=== PATIENT | female | born 1930 | race Caucasian/White ===

== ENCOUNTER 2016-08-21 18:35 | Inpatient (IN) ==
[2016-08-21 15:35] LABS: Basophils # 0.1 10*3/uL (0.0-0.2); Basophils % 0.5 % (0.0-0.8); Eosinophils # 0.2 10*3/uL (0.0-0.87); Hematocrit 37.9 VOL% (35.7-47.0); Hemoglobin 12.9 GM/DL (12.0-16.0); Immature Granulocytes % 1.3 %; Immature Granulocytes Absolute 0.26 #; Lymphocytes # 3.3 10*3/uL (1.4-4.0); Lymphocytes % 16.7 % (21.3-54.2); Mean Corpuscular Hemoglobin 32 PG (27-34); Mean Corpuscular Volume 92.4 FL (87-102); Mean Platelet Volume 11.2 FL (9.6-12.0); Monocytes # 1.4 10*3/uL (0.11-0.8); Monocytes % 6.8 % (1.7-12.7); Neutrophils # 14.6 10*3/uL (1.4-7.4); Neutrophils % 73.7 % (38.7-73.9); Platelet Count 330 T/CUMM (130-400); Red Cell Distribution Width 12.7 % (9.3-17.3); White Blood Count 19.7 T/CUMM (4-12)
[2016-08-21 15:45] LABS: INR 1.1; PT Patient Result 11.6 SECS; Partial Thromboplastin Time 23.8 SECS (0-40)
[2016-08-21 16:04] LABS: Blood Urea Nitrogen 27 MG/DL (7-18); Calcium 8.4 MG/DL (8.5-10.1); Glucose 267 MG/DL (74-106); Magnesium 2.4 MG/DL (1.8-2.4); Osmolality,Calculated 296.1 MOS/KG (273-304); Potassium 4.6 MMOL/L (3.5-5.1); Sodium 142 MMOL/L (136-145)
[2016-08-21 16:25] LABS: Troponin I Only 0.944 NG/ML (0.00-0.045)
--- NOTE | 2016-08-21 17:01 | EKG Report ---
Stationary ECG Study [facility] Test Date: 08/21/2016 5:00:50 PM Pat Name: CRUZITO COLVIN Department: Room: Gender: F Process Controller: : 1930 Requested by: Shania Pineda Order Number: [id number] Reading MD: ANGELICA MAGAÑA Intervals [place] Rate: 82 P: 999 MN: 0 QRS: 62 QRSD: 92 T: 79 QT: 381 QTc: 419 Interpretive Statements Atrial paced rhythm ANTERIOR EPICARDIAL INJURY INFERIOR EPICARDIAL INJURY Electronically Signed On 08-21-16 22:00:42 CDT by ANGELICA MAGAÑA [email or web address]
[2016-08-21 17:40] LABS: Basophils # 0.1 10*3/uL (0.0-0.2); Basophils % 0.2 % (0.0-0.8); Eosinophils % 0.2 % (0.00-10.9); Hemoglobin 13.6 GM/DL (12.0-16.0); Immature Granulocytes % 1.4 %; Immature Granulocytes Absolute 0.35 #; Lymphocytes # 1.6 10*3/uL (1.4-4.0); Mean Corpuscular Hemoglobin 32 PG (27-34); Mean Corpuscular Volume 94.3 FL (87-102); Mean Platelet Volume 10.8 FL (9.6-12.0); Monocytes # 0.7 10*3/uL (0.11-0.8); Monocytes % 2.6 % (1.7-12.7); Neutrophils # 23.2 10*3/uL (1.4-7.4); Neutrophils % 89.6 % (38.7-73.9); Platelet Count 254 T/CUMM (130-400); Red Blood Count 4.24 MC/CUMM (3.8-5.5); Red Cell Distribution Width 12.9 % (9.3-17.3); White Blood Count 25.8 T/CUMM (4-12)
[2016-08-21 18:02] LABS: CKMB % 8.8 %
[2016-08-21 18:07] LABS: Troponin I Only 1.82 NG/ML (0.00-0.045)
[~2016-08-21 18:35] MED LIST: BIVALIRUDIN 250 MG VIAL IV ONE; CLOPIDOGREL 300 MG TABLET ONE; DOPamine 800 MG/250 ML PREMIX IV ONE; HEPARIN/NACL 0.9% 2 UNITS/ML 1,000 ML IV ONE; HEPARIN/NACL 0.9% 2 UNITS/ML 500 ML IV ONE; LIDOCAINE 1% 20 ML VIAL ONE; MIDAZOLAM 2 MG/2 ML VIAL ONE; NITROGLYCERIN SL 0.4 MG TABLET SL PRN; ONDANSETRON 4 MG/2 ML VIAL IV PRN; ONDANSETRON 4 MG/2 ML VIAL ONE; PHENYLEPHRINE 50 MG/5 ML VIAL ONE; SODIUM BICARBONATE 2.4 MEQ/5 ML VIAL ONE; SODIUM CHLORIDE 0.45% 1,000 ML IV SCH; fentaNYL 100 MCG/2 ML VIAL ONE
[2016-08-21] MEDS: ATORVASTATIN 40 MG TABLET PO SCH (21:22)
--- NOTE | 2016-08-21 22:01 | Cardiology History & Physical ---
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 Martinez is a 85 year old female with a prior history of coronary artery disease, status post PCI to right coronary artery, also with pacemaker implantation. The patient was evaluated emergently in the Telecommunications Project Manager, it was a very poor historian. History was obtained as best I could from the patient, and chart review. Eventually this was supplemented by family postoperatively. From what I can ascertain if she has dementia and was in her retirement when she developed chest pain. EMS was activated, she was identified as having an ST elevation myocardial infarction and transferred to our facility. ECG showed ST elevation in the inferior leads and lateral leads. She was having ongoing chest pain upon arrival and underwent emergent cardiac catheterization. Please see that report for full details. She was found to have 100% mid LAD occlusion as well as 100% mid RCA occlusion. It seemed that the RCA was the culprit lesion and she underwent PCI of this vessel. I was unable to perform PCI of the mid LAD-see that report. She also had bradycardia intraoperatively despite having a pacemaker with a heart rate that was in the 20s-30s. Her pacemaker was adjusted postoperatively to improve function. She was identified as being kept under a "DO NOT RESUSCITATE" order, and these wishes were verified with the family. Apparently her Plavix was stopped 5 years ago due to rectal bleeding. I did obtain a emergency consent from the patient's granddaughter (the daughter was unavailable) preoperatively. Impression and plan: 1. Acute Inferolateral ST elevation myocardial infarction: She is status post emergent revascularization of her right coronary artery. The LAD may be a chronic occlusion and was not successfully crossed with the wire. We are going to treat her acutely with dual antiplatelet therapy, beta blockade and statin therapy. 2. Dementia-chronic. 3. Bradycardia-there was some suboptimal pacemaker function which is been adjusted and we will reevaluate this in the morning when the myocardium is less ischemic to see if it is more responsive. 4. "DO NOT RESUSCITATE". 5. Coronary artery disease Allergies Allergy/AdvReac Type Severity Reaction Status Date / Time codeine Allergy Verified 08/21/16 15:24 dexamethasone [From Maxitrol] Allergy Verified 08/21/16 15:24 morphine Allergy Verified 08/21/16 15:24 Neomycin [From Maxitrol] Allergy Verified 08/21/16 15:24 Penicillins Allergy Verified 08/21/16 15:24 polymyxin B [From Maxitrol] Allergy Verified 08/21/16 15:24 Sulfa (Sulfonamide Allergy Verified 08/21/16 15:24 Antibiotics) ROS unobtainable: due to mental status, due to dementia Medical,Surgical,& Family Hx - Medical History Cardio: History of: Pacemaker Neurology: History of: Dementia - Surgical History Cardiac Surgeries: Sugical HX of: Cardiac Catheterization (08/21/16) - Social History Smoking Status: Never smoker Frequency of Alcohol Use: None Type of Drug Use: None Cardiology Physical Exam - Constitutional Vitals: Vital Signs Temp Pulse Resp BP Pulse Ox 97.1 F L 88 20 152/70 96 08/21/16 20:00 08/21/16 21:00 08/21/16 21:00 08/21/16 21:00 08/21/16 21:00 Intake and Output 08/21/16 08/21/16 08/21/16 07:59 15:59 23:59 Intake Total 1000 / 1000 Balance 1000 / 1000 Intake: IV 1000 / 1000 1/2Ns 1,000 ml @ 125 mls/ 1000 / 1000 hr IV .Q8H [facility] Rx#: [id number] Other: Voiding Method Brief # Voids 0 Weight 58.967 kg 58.967 kg Patient Weight 08/21/16 23:59 Weight 58.967 kg Exam: General appearance: normal weight, no acute distress - Head Head exam: Present: normal inspection, normocephalic, atraumatic. Absent: hematoma, laceration - Eye Eye exam: Present: EOMI. Absent: conjunctival injection, nystagmus, periorbital swelling, scleral icterus, laceration to eyelids Pupils: Present: PERRL. Absent: constricted, dilated, fixed, irregular, unequal - ENT ENT exam: Present: normal exam, normal external ear exam - Neck Neck exam: Present: normal inspection. Absent: lymphadenopathy, meningismus, tenderness, thyromegaly - Respiratory Respiratory exam: Present: clear to auscultation bilaterally. Absent: accessory muscle use, chest wall tenderness - Cardiovascular Cardiovascular exam: Present: regular rate and rhythm. Absent: carotid bruit, gallop, JVD, rubs - GI/Abdominal GI/Abdominal exam: Present: normal bowel sounds, soft. Absent: distended, firm , guarding, hernia, mass, tenderness, rebound. - Extremities Exam Extremities exam: Present: normal inspection, normal capillary refill. Absent: calf tenderness, edema - Back Exam Back exam: Present: normal inspection. Absent: muscle spasm, vertebral tenderness - Neurological Exam Neurological exam: Present: alert, oriented X3, grossly intact without resting or intention tremor - Psychiatric Psychiatric exam: Present: normal affect, normal mood - Skin Skin exam: Present: normal color, warm, dry, intact. Absent: cyanosis, diaphoretic, rash, urticaria Result/EKG - Labs CBC & BMP: 08/21/16 17:16 08/21/16 15:18 Lab Results: I have reviewed the past 24 hour labs Labs: Laboratory Results - last 24 hr 08/21/16 08/21/16 08/21/16 15:18 15:18 15:18 WBC 19.7 H RBC 4.10 Hgb 12.9 Hct 37.9 MCV 92.4 MCH 32 MCHC 34.0 RDW 12.7 Plt Count 330 MPV 11.2 Neut % (Auto) 73.7 Lymph % (Auto) 16.7 L [place] % (Auto) 6.8 Eos % (Auto) 1.0 Baso % (Auto) 0.5 Neut # (Auto) 14.6 H Lymph # (Auto) 3.3 [place] # (Auto) 1.4 H Eos # (Auto) 0.2 Baso # (Auto) 0.1 Immature Gran % 1.3 Nucleated RBC % 0.0 Immature Gran # 0.26 Nucleated RBCs # 0.00 INR 1.1 PT Patient/Control Mix 11.6 Circ Anticoag PTT 23.8 Sodium 142 Potassium 4.6 Chloride 107 Carbon Dioxide 19 L Anion Gap 20.6 H BUN 27 H Creatinine 1.20 H GFR Calculation 38 BUN/Creatinine Ratio 22.00 H Glucose 267 H Calculated Osmolality 296.1 Calcium 8.4 L Magnesium 2.4 Total Creatine Kinase 43 CK-MB (CK-2) 2.4 CK and CKMB Interp Troponin I 0.944 H 08/21/16 08/21/16 17:16 17:16 WBC 25.8 H D RBC 4.24 Hgb 13.6 Hct 40.0 MCV 94.3 MCH 32 MCHC 34.0 RDW 12.9 Plt Count 254 D MPV 10.8 Neut % (Auto) 89.6 H Lymph % (Auto) 6.0 L [place] % (Auto) 2.6 Eos % (Auto) 0.2 Baso % (Auto) 0.2 Neut # (Auto) 23.2 H Lymph # (Auto) 1.6 [place] # (Auto) 0.7 Eos # (Auto) 0.0 Baso # (Auto) 0.1 Immature Gran % 1.4 Nucleated RBC % 0.0 Immature Gran # 0.35 Nucleated RBCs # 0.00 INR PT Patient/Control Mix Circ Anticoag PTT Sodium Potassium Chloride Carbon Dioxide Anion Gap BUN Creatinine GFR Calculation BUN/Creatinine Ratio Glucose Calculated Osmolality Calcium Magnesium Total Creatine Kinase 94 D CK-MB (CK-2) 8.3 H D CK and CKMB Interp 8.8 Troponin I 1.820 H D - EKG EKG results: interpreted by me, sinus rhythm (Inferior and lateral ST elevation)
--- NOTE | 2016-08-21 22:12 | Cardiology Operative Report ---
Date of Procedure:: 08/21/16 Pre-op diagnosis: Acute inferior myocardial infarction Post-op diagnosis: other (Severe two-vessel coronary artery disease with 100% occluded proximal mid RCA, 100% occluded mid LAD) Procedure: 1. Selective left and right coronary angiography. 2. Left heart catheterization with left ventriculogram. 3. Right iliac angiography to rule out vascular complications. 4. Percutaneous intervention of the proximal mid RCA with placement of synergy 3.5 x 24 mm drug-eluting stent. 5. Failed attempted PCI of the mid LAD. 6. Application of minx hemostasis device. Impression: 1. Severe two-vessel coronary artery disease. A. Proximal mid RCA 100% stenosis, in-stent. B. Mid LAD 100% occluded at the origin of the second diagonal artery. The second diagonal artery is also subtotally occluded. 2. Right dominant coronary arteries. 3. Ejection fraction 70%. 4. Angiographically normal right iliac artery without evidence of vascular complications. 5. Successful PCI of the mid RCA as described above. 6. Unsuccessful PCI of the mid LAD as described above. Plan: 1. DAPT > 12 months. 2. Risk factor modification. Equipment: Diagnostic 6 [place] JL4, pigtail catheters Guiding 6 [place] EBU 3.5 and JR4 catheters, 180cm [place] wire, over the wire track 2 x 12 mm balloon, synergy 3.5 x 24 mm drug-eluting stent, Quantum 3.5 x 20 mm non-compliant balloon Hemodynamics: Aortic pressure 95/23 mmHg, left ventricular pressure 64/17 mmHg, LVEDP 18 mmHg Sedation: Versed 1 mg, fentanyl 25 mcg Procedure: After informed consent was obtained the patient was prepped and draped in sterile fashion. The right groin was infiltrated with 1% lidocaine and the right femoral artery was accessed via modified Seldinger technique using a micropuncture needle and a 6 [place] femoral arterial sheath was placed. All catheter exchanges were performed over a guidewire under fluoroscopic guidance. Diagnostic 6 [place] JL4 and guiding 6 [place] JR4 catheters were advanced to the left and right coronary arteries respectively and multiple cineangiograms were performed in varying degrees of obliquity and angulation. Percutaneous intevention of the proximal mid RCA was then performed as described below. Thereafter a pigtail catheter was advanced into the left ventricle where hemodynamics were obtained followed by left ventriculogram. At conclusion of the procedure right iliac angiography was performed to rule out vascular complications. A minx hemostasis device was then applied to the right femoral arteriotomy site. Findings: 1. The left main artery is angiographically normal. 2. The left anterior descending artery is 100% occluded in the mid segment at the level of the second diagonal artery. The second diagonal artery is also subtotally occluded in the mid segment. 3. There is an intermediate ramus branch that is small and free of significant disease. 4. The circumflex artery has mild luminal irregularities but no significant stenosis. It is nondominant. 5. The right coronary artery has 100% in-stent thrombotic stenosis at the proximal stent edge of the proximal mid vessel. It is a dominant vessel. 6. Ejection fraction is 70 % with akinesis of just the apical tip. 7. Moderate mitral regurgitation. 8. No significant aortic stenosis. 9. The right iliac artery is angiographically normal without evidence of vascular complications. PCI: The patient was anticoagulated with Angiomax. After appropriate anticoagulation was confirmed with an ACT measurement, a guiding 6 [place] EBU 3.5 catheter was advanced to the right coronary artery. A [place] 180 cm wire was used to traverse the right coronary artery. A mini trek over the wire 2 x 12 mm balloon was advanced to the site of stenosis and angioplasty was performed multiple times at 14 alisson. Thereafter, a synergy 3.5 x 24 mm stent was advanced to the site of angioplasty, and successfully deployed at nominal pressure afterwards, a non-compliant Quantum 3.5 x 20 mm balloon was advanced into the stented segment and post-dilation was performed. Satisfactory angiographic result was obtained with appropriate step-up proximally and distally, and no evidence of residual vascular complications. Preoperatively there was 100% stenosis with NAIDA 0 flow, postoperatively there was 0% stenosis with NAIDA-3 flow. A guiding 6 [place] EBU 3.5 catheter was advanced to the left main artery. The provider 180 cm wire was advanced into the LAD but would not cross the occluded segment, preferentially going into the second diagonal branch. This branch was subtotally occluded, and the wire did not readily pass through the stenosis as well. The patient's ST segments were beginning to normalize after treatment of the right coronary artery, which was suspected to be the culprit vessel. The patient was demented and mildly uncooperative during the procedure. Accordingly , we elected to abort further attempts at intervening on the LAD. Contrast use: 139 cc Fluoro time: 13.5 minutes Complications: none Specimens removed: none Devices implanted: stent as described above Anesthesia: moderate conscious sedation Surgeon / Physician: Shania Pineda Commercial Painter: none (Valerie Tyler) Estimated blood loss: minimal Specimens: none sent Condition: critical Disposition: ICU/CCU
[2016-08-22 01:44] LABS: Basophils % 0.1 % (0.0-0.8); Eosinophils % 0.1 % (0.00-10.9); Hematocrit 35.7 VOL% (35.7-47.0); Hemoglobin 12.2 GM/DL (12.0-16.0); Immature Granulocytes % 0.8 %; Immature Granulocytes Absolute 0.12 #; Lymphocytes # 2.5 10*3/uL (1.4-4.0); Lymphocytes % 16.1 % (21.3-54.2); Mean Corpuscular HGB Conc 34.2 GM/DL (32-36); Mean Corpuscular Hemoglobin 32 PG (27-34); Mean Corpuscular Volume 92.5 FL (87-102); Monocytes # 1.4 10*3/uL (0.11-0.8); Monocytes % 9.3 % (1.7-12.7); Neutrophils # 11.2 10*3/uL (1.4-7.4); Neutrophils % 73.6 % (38.7-73.9); Platelet Count 264 T/CUMM (130-400); Red Blood Count 3.86 MC/CUMM (3.8-5.5); White Blood Count 15.3 T/CUMM (4-12)
[2016-08-22 01:55] LABS: CKMB % 11.5 %
[2016-08-22 01:56] LABS: Troponin I Only 12.6 NG/ML (0.00-0.045)
[2016-08-22] MEDS ORDERED: HALOPERIDOL 5 MG/ML AMP ONE (06:22)
[2016-08-22] MEDS: HALOPERIDOL 5 MG/ML AMP IV PRN ×2 (06:25→18:30)
[2016-08-22 06:34] LABS: Calcium 8.6 MG/DL (8.5-10.1); Osmolality,Calculated 285.3 MOS/KG (273-304); Potassium 4.4 MMOL/L (3.5-5.1); Risk Ratio 4.5; VLDL CHOLESTEROL 73.4 MG/DL
--- NOTE | 2016-08-22 07:39 | EKG Report ---
Stationary ECG Study [facility] Test Date: 08/22/2016 6:24:33 AM Pat Name: CRUZITO COLVIN Department: Room: 125 Gender: F Technical Consultant: CAROL : 1930 Requested by: Shania Pineda Order Number: [id number] Reading MD: ANGELICA MAGAÑA Intervals Muse Rate: 79 P: 999 AK: 0 QRS: 29 QRSD: 77 T: 143 QT: 374 QTc: 408 Interpretive Statements Sinus rhythm with Mobitz I 2AVB and sinus arrhythmia, atrial pacing LOW QRS VOLTAGE IN PRECORDIAL LEADS INFERIOR MYOCARDIAL INFARCTION, POSSIBLY ACUTE ST ELEVATION, CONSIDER ANTERIOR INJURY Electronically Signed On 08-23-16 22:42:30 CDT by ANGELICA MAGAÑA [id number]
[2016-08-22] MEDS: ASPIRIN EC 81 MG TABLET PO SCH (09:07)
[2016-08-22] MEDS: SERTRALINE 50 MG TABLET PO SCH (09:07)
[2016-08-22] MEDS: LEVOTHYROXINE 75 MCG TABLET PO SCH (09:07)
[2016-08-22] MEDS: MIRTAZAPINE 15 MG TABLET PO SCH (09:07)
[2016-08-22] MEDS: CLOPIDOGREL 75 MG TABLET PO SCH (09:07)
[2016-08-22] MEDS: CARVEDILOL 3.125 MG TABLET PO SCH ×2 (09:07→21:22)
[2016-08-22] MEDS: PANTOPRAZOLE 40 MG TABLET PO SCH (09:07)
[2016-08-22] MEDS: POLYETHYLENE GLYCOL POWDER 17 GM PACK PO SCH (09:08)
[2016-08-22 09:18] LABS: Troponin I Only 15.7 NG/ML (0.00-0.045)
[2016-08-22] MEDS: FLUTICASONE 50 MCG NASAL SPRAY 16 GM BOTTLE BOTH NARES SCH (09:36)
[2016-08-22] MEDS: rOPINIRole 0.25 MG TABLET PO SCH (09:36)
[2016-08-22] MEDS: ENOXAPARIN 30 MG/0.3 ML SYRINGE SUBCUT SCH (09:54)
[2016-08-22] MEDS ORDERED: ZIPRASIDONE 20 MG/1 ML VIAL IM SCH (10:30)
[2016-08-22] MEDS ORDERED: ZIPRASIDONE 20 MG/1 ML VIAL IM PRN (10:34)
[2016-08-22] MEDS: LORazepam 0.5 MG TABLET PO SCH ×2 (10:51→21:22)
[2016-08-22] MEDS: QUEtiapine 100 MG TABLET PO SCH ×2 (10:52→21:22)
--- NOTE | 2016-08-22 12:17 | Cardiology Progress Note ---
<PapiNhung E - Last Filed: 08/22/16 17:04> Assessment and Plan - Time spent with patient Time spent with patient: Less than 30 minutes (1) ST elevation myocardial infarction (STEMI) of inferior wall Status: Acute Assessment and plan: SEE PLAN OF CARE LISTED BELOW Current Visit: Yes (2) Coronary artery disease Status: Chronic Assessment and plan: SEE PLAN OF CARE LISTED BELOW Current Visit: Yes (3) Pacemaker Status: Chronic Assessment and plan: SEE PLAN OF CARE LISTED BELOW Current Visit: Yes (4) Hypertension Status: Chronic Assessment and plan: SEE PLAN OF CARE LISTED BELOW Current Visit: Yes (5) Dementia Status: Chronic Assessment and plan: SEE PLAN OF CARE LISTED BELOW Current Visit: Yes (6) Bradycardia Status: Acute Assessment and plan: SEE PLAN OF CARE LISTED BELOW Current Visit: Yes Cardiology - PN: Subj Interval history: LNA: DR. MANN Ms. Martinez is a 85 year old female with a prior history of coronary artery disease, status post PCI to right coronary artery, also with pacemaker implantation. She has dementia and [facility]. She developed chest pain, EMS was activated, and she was brought directly to our facility due to STEMI. ECG showed ST elevation in the inferior leads and lateral leads. She was having ongoing chest pain upon arrival and underwent emergent cardiac catheterization. She was found to have 100% mid LAD occlusion as well as 100% mid RCA occlusion. It seemed that the RCA was the culprit lesion and she underwent PCI of this vessel. She also had bradycardia intraoperatively despite having a pacemaker with a heart rate that was in the 20s-30s. Her pacemaker was adjusted postoperatively to improve function. She was identified as being kept under a "DO NOT RESUSCITATE" order, and these wishes were verified with the family. Apparently her Plavix was stopped 5 years ago due to rectal bleeding. Her daughter was at the bedside today and verbalized understanding of the necessity of starting the patient back on DAPT. She had a chest x-ray today which revealed stable lead placement. Her right groin cath site is without bleeding, hematoma, or bruit. Femoral pulse is 3+. She has no pain at the site and no ecchymosis. If she remains stable, we will plan on moving her up to the telemetry floor tomorrow. Impression and plan: 1. ACUTE INFEROLATERAL ST ELEVATION MYOCARDIAL INFARCTION - She is status post emergent revascularization of her right coronary artery. The LAD may be a chronic occlusion and was not successfully crossed with the wire. We are going to treat her acutely with dual antiplatelet therapy, beta blockade and statin therapy. 2. DEMENTIA - chronic. 3. BRADYCARDIA - there was some suboptimal pacemaker function which is been adjusted. This was re-evaluated today. She had some abdominal pulsations and her settings were once again adjusted and pacemaker now seems to be functioning appropriately. This afternoon, she was given a dose of Geodon and subsequently had an episode of hypotension and diaphoresis which improved within a few minutes. No EKG changes were noted and her pacemaker has continued functioning appropriately. 4. "DO NOT RESUSCITATE". 5. CORONARY ARTERY DISEASE Dr. Pineda to follow with further plan and addendum. Exam (Progress Note) - Constitutional Vitals: Period Temp Pulse Resp BP Sys/Cooper Pulse Ox Last 24 Hr 97.1 F-99.0 F 69-93 12-28 83-156/34-100 92-97 Exam: General appearance: normal weight, no acute distress - Head Head exam: Present: normal inspection, normocephalic, atraumatic. Absent: hematoma, laceration - Eye Eye exam: Present: EOMI. Absent: conjunctival injection, nystagmus, periorbital swelling, scleral icterus, laceration to eyelids Pupils: Present: PERRL. Absent: constricted, dilated, fixed, irregular, unequal - ENT ENT exam: Present: normal exam, normal external ear exam - Neck Neck exam: Present: normal inspection. Absent: lymphadenopathy, meningismus, tenderness, thyromegaly - Respiratory Respiratory exam: Present: clear to auscultation bilaterally. Absent: accessory muscle use, chest wall tenderness - Cardiovascular Cardiovascular exam: Present: regular rate and rhythm. Absent: carotid bruit, gallop, JVD, rubs - GI/Abdominal GI/Abdominal exam: Present: normal bowel sounds, soft. Absent: distended, firm , guarding, hernia, mass, tenderness, rebound. - Extremities Exam Extremities exam: Present: normal inspection, normal capillary refill. Absent: calf tenderness, edema - Back Exam Back exam: Present: normal inspection. Absent: muscle spasm, vertebral tenderness - Neurological Exam Neurological exam: Present: alert, oriented to person, grossly intact without resting or intention tremor - Psychiatric Psychiatric exam: Present: normal affect, normal mood - Skin Skin exam: Present: normal color, warm, dry, intact. Absent: cyanosis, diaphoretic, rash, urticaria Result/EKG - Labs CBC & BMP: 08/22/16 01:16 08/22/16 01:16 Lab Results: I have reviewed the past 24 hour labs Labs: Laboratory Results - last 24 hr 08/21/16 08/21/16 08/21/16 15:18 15:18 15:18 WBC 19.7 H RBC 4.10 Hgb 12.9 Hct 37.9 MCV 92.4 MCH 32 MCHC 34.0 RDW 12.7 Plt Count 330 MPV 11.2 Neut % (Auto) 73.7 Lymph % (Auto) 16.[address] [place] % (Auto) 6.8 Eos % (Auto) 1.0 Baso % (Auto) 0.5 Neut # (Auto) 14.6 H Lymph # (Auto) 3.3 [place] # (Auto) 1.4 H Eos # (Auto) 0.2 Baso # (Auto) 0.1 Immature Gran % 1.3 Nucleated RBC % 0.0 Immature Gran # 0.26 Nucleated RBCs # 0.00 INR 1.1 PT Patient/Control Mix 11.6 Circ Anticoag PTT 23.8 Sodium 142 Potassium 4.6 Chloride 107 Carbon Dioxide 19 L Anion Gap 20.6 H BUN 27 H Creatinine 1.20 H GFR Calculation 38 BUN/Creatinine Ratio 22.00 H Glucose 267 H Calculated Osmolality 296.1 Calcium 8.4 L Magnesium 2.4 ALT Total Creatine Kinase 43 CK-MB (CK-2) 2.4 CK and CKMB Interp Troponin I 0.944 H Triglycerides Cholesterol LDL Cholesterol VLDL Cholesterol HDL Cholesterol Heart Disease Risk Ratio 08/21/16 08/21/16 08/22/16 17:16 17:16 01:16 WBC 25.8 H D RBC 4.24 Hgb 13.6 Hct 40.0 MCV 94.3 MCH 32 MCHC 34.0 RDW 12.9 Plt Count 254 D MPV 10.8 Neut % (Auto) 89.6 H Lymph % (Auto) 6.[address] % (Auto) 2.6 Eos % (Auto) 0.2 Baso % (Auto) 0.2 Neut # (Auto) 23.2 H Lymph # (Auto) 1.6 [place] # (Auto) 0.7 Eos # (Auto) 0.0 Baso # (Auto) 0.1 Immature Gran % 1.4 Nucleated RBC % 0.0 Immature Gran # 0.35 Nucleated RBCs # 0.00 INR PT Patient/Control Mix Circ Anticoag PTT Sodium Potassium Chloride Carbon Dioxide Anion Gap BUN Creatinine GFR Calculation BUN/Creatinine Ratio Glucose Calculated Osmolality Calcium Magnesium ALT Total Creatine Kinase 94 D 417 H D CK-MB (CK-2) 8.3 H D 47.9 H D CK and CKMB Interp 8.8 11.5 Troponin I 1.820 H D 12.600 H D Triglycerides Cholesterol LDL Cholesterol VLDL Cholesterol HDL Cholesterol Heart Disease Risk Ratio 08/22/16 08/22/16 01:16 01:16 WBC 15.3 H D RBC 3.86 Hgb 12.2 Hct 35.7 MCV 92.5 MCH 32 MCHC 34.2 RDW 13.0 Plt Count 264 MPV 11.0 Neut % (Auto) 73.6 Lymph % (Auto) 16.[address] % (Auto) 9.3 Eos % (Auto) 0.1 Baso % (Auto) 0.1 Neut # (Auto) 11.2 H Lymph # (Auto) 2.5 [place] # (Auto) 1.4 H Eos # (Auto) 0.0 Baso # (Auto) 0.0 Immature Gran % 0.8 Nucleated RBC % 0.0 Immature Gran # 0.12 Nucleated RBCs # 0.00 INR PT Patient/Control Mix Circ Anticoag PTT Sodium 141 Potassium 4.4 Chloride 105 Carbon Dioxide 22 Anion Gap 18.4 H BUN 23 H Creatinine 1.10 H GFR Calculation 42 BUN/Creatinine Ratio 20.00 Glucose 116 H Calculated Osmolality 285.3 Calcium 8.6 Magnesium ALT 127 H Total Creatine Kinase CK-MB (CK-2) CK and CKMB Interp Troponin I Triglycerides 367 H Cholesterol 162 LDL Cholesterol 86.0 VLDL Cholesterol 73.4 HDL Cholesterol 36 L Heart Disease Risk Ratio 4.50 - EKG EKG results: interpreted by me (v paced with underlying sinus rhythm) Specialty Discharge - Follow Up or Referrals <Shania Pineda - Last Filed: 08/22/16 20:13> Assessment and Plan (1) ST elevation myocardial infarction (STEMI) of inferior wall Status: Acute Current Visit: Yes (2) Coronary artery disease Status: Chronic Current Visit: Yes (3) Pacemaker Status: Chronic Current Visit: Yes (4) Hypertension Status: Chronic Current Visit: Yes (5) Dementia Status: Chronic Current Visit: Yes (6) Bradycardia Status: Acute Current Visit: Yes Cardiology - PN: Subj Interval history: I have personally interviewed and evaluated the patient, reviewed the chart and discussed medical decision-making with practitioner Papi. I have read this note and agree with her documentation here in. The patient is having diaphragmatic pacing and we will need to readjust her pacemaker. Exam (Progress Note) - Constitutional Vitals: Period Temp Pulse Resp BP Sys/Cooper Pulse Ox Last 24 Hr 98.2 F-99.0 F 59-93 12-23 96-156/40-100 92-97 Result/EKG - Labs CBC & BMP: 08/22/16 01:16 08/22/16 01:16 Labs: Laboratory Results - last 24 hr 08/22/16 08/22/16 08/22/16 01:16 01:16 01:16 WBC 15.3 H D RBC 3.86 Hgb 12.2 Hct 35.7 MCV 92.5 MCH 32 MCHC 34.2 RDW 13.0 Plt Count 264 MPV 11.0 Neut % (Auto) 73.6 Lymph % (Auto) 16.[address] [place] % (Auto) 9.3 Eos % (Auto) 0.1 Baso % (Auto) 0.1 Neut # (Auto) 11.2 H Lymph # (Auto) 2.5 [place] # (Auto) 1.4 H Eos # (Auto) 0.0 Baso # (Auto) 0.0 Immature Gran % 0.8 Nucleated RBC % 0.0 Immature Gran # 0.12 Nucleated RBCs # 0.00 Sodium 141 Potassium 4.4 Chloride 105 Carbon Dioxide 22 Anion Gap 18.4 H BUN 23 H Creatinine 1.10 H GFR Calculation 42 BUN/Creatinine Ratio 20.00 Glucose 116 H Calculated Osmolality 285.3 Calcium 8.6 ALT 127 H Total Creatine Kinase 417 H D CK-MB (CK-2) 47.9 H D CK and CKMB Interp 11.5 Troponin I 12.600 H D Triglycerides 367 H Cholesterol 162 LDL Cholesterol 86.0 VLDL Cholesterol 73.4 HDL Cholesterol 36 L Heart Disease Risk Ratio 4.50 08/22/16 08:43 WBC RBC Hgb Hct MCV MCH MCHC RDW Plt Count MPV Neut % (Auto) Lymph % (Auto) [place] % (Auto) Eos % (Auto) Baso % (Auto) Neut # (Auto) Lymph # (Auto) [place] # (Auto) Eos # (Auto) Baso # (Auto) Immature Gran % Nucleated RBC % Immature Gran # Nucleated RBCs # Sodium Potassium Chloride Carbon Dioxide Anion Gap BUN Creatinine GFR Calculation BUN/Creatinine Ratio Glucose Calculated Osmolality Calcium ALT Total Creatine Kinase 518 H D CK-MB (CK-2) 41.4 H D CK and CKMB Interp 8.0 Troponin I 15.700 H D Triglycerides Cholesterol LDL Cholesterol VLDL Cholesterol HDL Cholesterol Heart Disease Risk Ratio
--- NOTE | 2016-08-22 15:04 | XRay Report ---
History: Check pacemaker leads. Myocardial infarction Date: 08/22/2016 Study: Chest x-ray single view Comparison exam: December 20, 2010 There is stable mild cardiomegaly. The mediastinal contour is unchanged. There is moderate aortic arch calcification. The pulmonary vasculature is not engorged. There is no gross pleural effusion. There is no confluent infiltrate. There is mild platelike subsegmental atelectasis in the left lower lobe. A left subclavian multilead transvenous pacemaker is generally intact and appears grossly well-positioned in this single projection. The osseous structures are unchanged. Impression: Minimal platelike subsegmental atelectasis left lung base. Stable mild cardiomegaly. Pacemaker as before PROCEDURE INTERPRETED AT [facility] DEPARTMENT OF RADIOLOGY Final Report Signed by: Dr. Liberty Chin
[2016-08-22] MEDS: OLOPATADINE HCL BOTH EYES SCH (16:33)
[2016-08-22] MEDS: LATANOPROST 0.005% OPH SOLN 2.5 ML BOTTLE BOTH EYES SCH (16:34)
[2016-08-22] MEDS: ATORVASTATIN 40 MG TABLET PO SCH (21:22)
[2016-08-23] MEDS: HALOPERIDOL 5 MG/ML AMP IV PRN (05:27)
[2016-08-23 06:59] LABS: Calcium 9.7 MG/DL (8.5-10.1); Osmolality,Calculated 294.7 MOS/KG (273-304); Potassium 5.2 MMOL/L (3.5-5.1)
[2016-08-23 07:37] LABS: Basophils # 0.1 10*3/uL (0.0-0.2); Basophils % 0.5 % (0.0-0.8); Eosinophils # 0.1 10*3/uL (0.0-0.87); Eosinophils % 0.8 % (0.00-10.9); Hematocrit 37.8 VOL% (35.7-47.0); Hemoglobin 12.7 GM/DL (12.0-16.0); Immature Granulocytes % 0.5 %; Immature Granulocytes Absolute 0.07 #; Lymphocytes # 2.3 10*3/uL (1.4-4.0); Lymphocytes % 17.5 % (21.3-54.2); Mean Corpuscular HGB Conc 33.6 GM/DL (32-36); Mean Corpuscular Hemoglobin 32 PG (27-34); Mean Corpuscular Volume 94.3 FL (87-102); Monocytes # 1.3 10*3/uL (0.11-0.8); Monocytes % 9.9 % (1.7-12.7); Neutrophils # 9.3 10*3/uL (1.4-7.4); Neutrophils % 70.8 % (38.7-73.9); Platelet Count 218 T/CUMM (130-400); Red Blood Count 4.01 MC/CUMM (3.8-5.5); Red Cell Distribution Width 13.2 % (9.3-17.3); White Blood Count 13.2 T/CUMM (4-12)
--- NOTE | 2016-08-23 08:31 | Cardiology Progress Note ---
<TurpinJose MNhung E - Last Filed: 08/23/16 08:26> Assessment and Plan - Time spent with patient Time spent with patient: Less than 30 minutes (1) ST elevation myocardial infarction (STEMI) of inferior wall Status: Acute Assessment and plan: SEE PLAN OF CARE LISTED BELOW Current Visit: Yes (2) Coronary artery disease Status: Chronic Assessment and plan: SEE PLAN OF CARE LISTED BELOW Current Visit: Yes (3) Pacemaker Status: Chronic Assessment and plan: SEE PLAN OF CARE LISTED BELOW Current Visit: Yes (4) Hypertension Status: Chronic Assessment and plan: SEE PLAN OF CARE LISTED BELOW Current Visit: Yes (5) Dementia Status: Chronic Assessment and plan: SEE PLAN OF CARE LISTED BELOW Current Visit: Yes (6) Bradycardia Status: Acute Assessment and plan: SEE PLAN OF CARE LISTED BELOW Current Visit: Yes Cardiology - PN: Subj Interval history: AIRCRAFT ENGINE ASSEMBLER: DR. MANN Ms. Martinez is a 85 year old female with a prior history of coronary artery disease, status post PCI to right coronary artery, also with pacemaker implantation. She has dementia and resides in the assisted. She developed chest pain, EMS was activated, and she was brought directly to our facility due to STEMI. ECG showed ST elevation in the inferior leads and lateral leads. She was having ongoing chest pain upon arrival and underwent emergent cardiac catheterization. She was found to have 100% mid LAD occlusion as well as 100% mid RCA occlusion. It seemed that the RCA was the culprit lesion and she underwent PCI of this vessel. She also had bradycardia intraoperatively despite having a pacemaker with a heart rate that was in the 20s-30s. Her pacemaker was adjusted postoperatively to improve function. She was identified as being kept under a "DO NOT RESUSCITATE" order, and these wishes were verified with the family. Apparently her Plavix was stopped 5 years ago due to rectal bleeding. Her daughter was at the bedside today and verbalized understanding of the necessity of starting the patient back on DAPT. She had a chest x-ray today which revealed stable lead placement. Her right groin cath site is without bleeding, hematoma, or bruit. Femoral pulse is 3+. She has no pain at the site and no ecchymosis. If she remains stable, we will plan on moving her up to the telemetry floor tomorrow. Impression and plan: 1. ACUTE INFEROLATERAL ST ELEVATION MYOCARDIAL INFARCTION - She is status post emergent revascularization of her right coronary artery. The LAD may be a chronic occlusion and was not successfully crossed with the wire. We are going to treat her acutely with dual antiplatelet therapy, beta blockade and statin therapy. 2. DEMENTIA - chronic. She is receiving Geodon to help with intermittent agitation. 3. BRADYCARDIA - there was some suboptimal pacemaker function which is been adjusted. This was re-evaluated and she was found to have some diaphragmatic pacing and her settings were once again adjusted. This morning, she continues to have some intermittent diaphragmatic pacing. We will ask [employer] to come by and check on her settings again today. This may improve over time as she recovers from her acute event. 4. "DO NOT RESUSCITATE". 5. CORONARY ARTERY DISEASE Dr. Pineda to follow with further plan and addendum. Exam (Progress Note) - Constitutional Vitals: Period Temp Pulse Resp BP Sys/Cooper Pulse Ox Last 24 Hr 97.5 F-98.5 F 54-82 12-24 96-177/39-75 89-97 Exam: General appearance: normal weight, no acute distress - Head Head exam: Present: normal inspection, normocephalic, atraumatic. Absent: hematoma, laceration - Eye Eye exam: Present: EOMI. Absent: conjunctival injection, nystagmus, periorbital swelling, scleral icterus, laceration to eyelids Pupils: Present: PERRL. Absent: constricted, dilated, fixed, irregular, unequal - ENT ENT exam: Present: normal exam, normal external ear exam - Neck Neck exam: Present: normal inspection. Absent: lymphadenopathy, meningismus, tenderness, thyromegaly - Respiratory Respiratory exam: Present: clear to auscultation bilaterally. Absent: accessory muscle use, chest wall tenderness - Cardiovascular Cardiovascular exam: Present: regular rate and rhythm. Absent: carotid bruit, gallop, JVD, rubs - GI/Abdominal GI/Abdominal exam: Present: normal bowel sounds, soft. Absent: distended, firm , guarding, hernia, mass, tenderness, rebound. - Extremities Exam Extremities exam: Present: normal inspection, normal capillary refill. Absent: calf tenderness, edema - Back Exam Back exam: Present: normal inspection. Absent: muscle spasm, vertebral tenderness - Neurological Exam Neurological exam: Present: alert, oriented to person, grossly intact without resting or intention tremor - Psychiatric Psychiatric exam: Present: normal affect, normal mood - Skin Skin exam: Present: normal color, warm, dry, intact. Absent: cyanosis, diaphoretic, rash, urticaria Result/EKG - Labs CBC & BMP: 08/23/16 07:23 08/23/16 05:08 Lab Results: I have reviewed the past 24 hour labs Labs: Laboratory Results - last 24 hr 08/22/16 08/23/16 08/23/16 08:43 05:08 07:23 WBC 13.2 H RBC 4.01 Hgb 12.7 Hct 37.8 MCV 94.3 MCH 32 MCHC 33.6 RDW 13.2 Plt Count 218 MPV 11.0 Neut % (Auto) 70.8 Lymph % (Auto) 17.5 L [place] % (Auto) 9.9 Eos % (Auto) 0.8 Baso % (Auto) 0.5 Neut # (Auto) 9.3 H Lymph # (Auto) 2.3 [place] # (Auto) 1.3 H Eos # (Auto) 0.1 Baso # (Auto) 0.1 Immature Gran % 0.5 Nucleated RBC % 0.0 Immature Gran # 0.07 Nucleated RBCs # 0.00 Sodium 145 Potassium 5.2 H Chloride 108 H Carbon Dioxide 22 Anion Gap 20.2 H BUN 27 H Creatinine 1.30 H GFR Calculation 35 BUN/Creatinine Ratio 20.00 Glucose 141 H Calculated Osmolality 294.7 Calcium 9.7 Total Creatine Kinase 518 H D CK-MB (CK-2) 41.4 H D CK and CKMB Interp 8.0 Troponin I 15.700 H D - EKG EKG results: interpreted by me (ventricular pacing with underlying sinus rhythm) Specialty Discharge - Follow Up or Referrals <Shania Pineda - Last Filed: 08/23/16 20:39> Assessment and Plan (1) ST elevation myocardial infarction (STEMI) of inferior wall Status: Acute Current Visit: Yes (2) Coronary artery disease Status: Chronic Current Visit: Yes (3) Pacemaker Status: Chronic Current Visit: Yes (4) Hypertension Status: Chronic Current Visit: Yes (5) Dementia Status: Chronic Current Visit: Yes (6) Bradycardia Status: Acute Current Visit: Yes Cardiology - PN: Subj Interval history: I have personally interviewed and evaluated the patient, reviewed the chart and discussed medical decision-making with practitioner Papi. I have read this note and agree with her documentation here in. I have discussed the patient's pacemaker situation with Dr. Isaac. Because the patient has advanced dementia it is felt most prudent to adjust her pacemaker for VVI backup pacemaking at a low rate which may intermittently pacer diaphragm, however she is not pacemaker dependent and uses the pacemaker function and frequently at the lower rate. She really would not be a candidate for revision given her advanced age, and dementia. Exam (Progress Note) - Constitutional Vitals: Period Temp Pulse Resp BP Sys/Cooper Pulse Ox Last 24 Hr 97.5 F-98.8 F 54-82 12-22 116-177/39-87 89-97 Result/EKG - Labs CBC & BMP: 08/23/16 07:23 08/23/16 05:08 Labs: Laboratory Results - last 24 hr 08/23/16 08/23/16 05:08 07:23 WBC 13.2 H RBC 4.01 Hgb 12.7 Hct 37.8 MCV 94.3 MCH 32 MCHC 33.6 RDW 13.2 Plt Count 218 MPV 11.0 Neut % (Auto) 70.8 Lymph % (Auto) 17.5 L [place] % (Auto) 9.9 Eos % (Auto) 0.8 Baso % (Auto) 0.5 Neut # (Auto) 9.3 H Lymph # (Auto) 2.3 [place] # (Auto) 1.3 H Eos # (Auto) 0.1 Baso # (Auto) 0.1 Immature Gran % 0.5 Nucleated RBC % 0.0 Immature Gran # 0.07 Nucleated RBCs # 0.00 Sodium 145 Potassium 5.2 H Chloride 108 H Carbon Dioxide 22 Anion Gap 20.2 H BUN 27 H Creatinine 1.30 H GFR Calculation 35 BUN/Creatinine Ratio 20.00 Glucose 141 H Calculated Osmolality 294.7 Calcium 9.7
[2016-08-23] MEDS: QUEtiapine 100 MG TABLET PO SCH ×2 (09:08→21:53)
[2016-08-23] MEDS: ASPIRIN EC 81 MG TABLET PO SCH (09:08)
[2016-08-23] MEDS: SERTRALINE 50 MG TABLET PO SCH (09:08)
[2016-08-23] MEDS: LORazepam 0.5 MG TABLET PO SCH ×2 (09:08→21:44)
[2016-08-23] MEDS: CLOPIDOGREL 75 MG TABLET PO SCH (09:08)
[2016-08-23] MEDS: CARVEDILOL 3.125 MG TABLET PO SCH ×2 (09:09→21:44)
[2016-08-23] MEDS: LEVOTHYROXINE 75 MCG TABLET PO SCH (09:09)
[2016-08-23] MEDS: rOPINIRole 0.25 MG TABLET PO SCH (09:09)
[2016-08-23] MEDS: PANTOPRAZOLE 40 MG TABLET PO SCH (09:09)
[2016-08-23] MEDS: MIRTAZAPINE 15 MG TABLET PO SCH (09:09)
[2016-08-23] MEDS: FLUTICASONE 50 MCG NASAL SPRAY 16 GM BOTTLE BOTH NARES SCH (09:11)
[2016-08-23] MEDS: ENOXAPARIN 30 MG/0.3 ML SYRINGE SUBCUT SCH (09:21)
[2016-08-23] MEDS: LATANOPROST 0.005% OPH SOLN 2.5 ML BOTTLE BOTH EYES SCH (10:37)
[2016-08-23] MEDS: OLOPATADINE HCL BOTH EYES SCH (10:38)
--- NOTE | 2016-08-23 17:37 | ECHO Report ---
Nereida Martinez Exam Date: 08/22/2016 08:24 Referring Physician: Technologist: Luz Patton Age: 85 Ht (in): 62 Wt (lb): 130 Gender: F Exam Location: [facility] Echo Indications: CAD, Essential (primary) hypertension, Chest pain, unspecified, Bradycardia, unspecified, Presence of cardiac pacemaker, Dementia BP: 147 / 40 HR: 80 Rhythm: pacemaker Technical Quality: Fair IMPRESSIONS Low normal mildly reduced LV systolic function with regional wall motion as described below, ejection fraction 45-50%. Grade 1/4 diastolic dysfunction. Mild left ventricular hypertrophy. Mild mitral, aortic and tricuspid regurgitation. MEASUREMENTS (Male / Female) Normal Values 2D ECHO LV Diastolic Diameter PLAX 3.5 cm 4.2 - 5.9 / 3.9 - 5.3 cm LV Systolic Diameter PLAX 2.1 cm LV Fractional Shortening PLAX 40.2 % IVS Diastolic Thickness 1.3 cm 0.6 - 1.0 / 0.6 - 0.9 cm LVPW Diastolic Thickness 0.9 cm 0.6 - 1.0 / 0.6 - 0.9 cm RV Internal Dim ED PLAX 2.3 cm Aortic Root Diameter 2.6 cm LA Systolic Diameter LX 3.0 cm 3.0 - 4.0 / 2.7 - 3.8 cm DOPPLER TR Peak Velocity 276.0 cm/s TR Peak Gradient 30.5 mmHg FINDINGS Left Ventricle Normal left ventricular cavity size. Normal left ventricular size and systolic function, left ventricular ejection fraction is estimated at 50%. There is very poor endocardial resolution which prohibits regional wall motion assessment. The apex and distal inferior wall are suspected to be akinetic. Right Ventricle Normal right ventricular size. Right Atrium Normal right atrial size. Left Atrium Normal left atrial size. Mitral Valve Mild mitral valve sclerosis. Mild mitral valve regurgitation. Aortic Valve Aortic valve sclerosis without stenosis. Mild aortic valve regurgitation. Tricuspid Valve Morphologically normal tricuspid valve. Mild tricuspid valve regurgitation. Tricuspid regurgitation velocities suggest a PAP of 40 mmHg. Pulmonic Valve Morphologically normal pulmonic valve. Pericardium No pericardial effusion. Aorta Normal size aortic root and proximal ascending aorta. Shania Pineda MD (Electronically Signed) Final Date: 23 Aug 2016 17:36
[2016-08-23] MEDS: ATORVASTATIN 40 MG TABLET PO SCH (21:44)
[2016-08-24 05:58] LABS: Basophils # 0.1 10*3/uL (0.0-0.2); Basophils % 0.7 % (0.0-0.8); Eosinophils # 0.4 10*3/uL (0.0-0.87); Eosinophils % 3.1 % (0.00-10.9); Hematocrit 35.7 VOL% (35.7-47.0); Hemoglobin 11.9 GM/DL (12.0-16.0); Immature Granulocytes % 0.7 %; Immature Granulocytes Absolute 0.08 #; Lymphocytes # 2.6 10*3/uL (1.4-4.0); Lymphocytes % 21.7 % (21.3-54.2); Mean Corpuscular HGB Conc 33.3 GM/DL (32-36); Mean Corpuscular Hemoglobin 31 PG (27-34); Mean Corpuscular Volume 93.7 FL (87-102); Mean Platelet Volume 11.4 FL (9.6-12.0); Monocytes # 1.1 10*3/uL (0.11-0.8); Neutrophils # 7.6 10*3/uL (1.4-7.4); Neutrophils % 64.8 % (38.7-73.9); Platelet Count 218 T/CUMM (130-400); Red Blood Count 3.81 MC/CUMM (3.8-5.5); White Blood Count 11.8 T/CUMM (4-12)
[2016-08-24 06:18] LABS: Osmolality,Calculated 292.8 MOS/KG (273-304); Potassium 4.1 MMOL/L (3.5-5.1)
[2016-08-24] MEDS: ASPIRIN EC 81 MG TABLET PO SCH (09:40)
[2016-08-24] MEDS: PANTOPRAZOLE 40 MG TABLET PO SCH (09:40)
[2016-08-24] MEDS: rOPINIRole 0.25 MG TABLET PO SCH (09:41)
[2016-08-24] MEDS: MIRTAZAPINE 15 MG TABLET PO SCH (09:41)
[2016-08-24] MEDS: CARVEDILOL 3.125 MG TABLET PO SCH (09:41)
[2016-08-24] MEDS: LORazepam 0.5 MG TABLET PO SCH ×2 (09:41→21:52)
[2016-08-24] MEDS: CLOPIDOGREL 75 MG TABLET PO SCH (09:41)
[2016-08-24] MEDS: QUEtiapine 100 MG TABLET PO SCH ×2 (09:41→21:54)
[2016-08-24] MEDS: LEVOTHYROXINE 75 MCG TABLET PO SCH (09:41)
[2016-08-24] MEDS: SERTRALINE 50 MG TABLET PO SCH (09:42)
[2016-08-24] MEDS: POLYETHYLENE GLYCOL POWDER 17 GM PACK PO SCH (09:42)
[2016-08-24] MEDS: FLUTICASONE 50 MCG NASAL SPRAY 16 GM BOTTLE BOTH NARES SCH (09:42)
[2016-08-24] MEDS: LATANOPROST 0.005% OPH SOLN 2.5 ML BOTTLE BOTH EYES SCH (09:44)
[2016-08-24] MEDS: ENOXAPARIN 40 MG/0.4 ML SYRINGE SUBCUT SCH (09:44)
[2016-08-24] MEDS: OLOPATADINE HCL BOTH EYES SCH ×2 (09:44→10:00)
--- NOTE | 2016-08-24 17:38 | Cardiology Progress Note ---
Assessment and Plan (1) ST elevation myocardial infarction (STEMI) of inferior wall Status: Acute Current Visit: Yes (2) Coronary artery disease Status: Chronic Current Visit: Yes (3) Pacemaker Status: Chronic Current Visit: Yes (4) Hypertension Status: Chronic Current Visit: Yes (5) Dementia Status: Chronic Current Visit: Yes (6) Bradycardia Status: Resolved Current Visit: Yes Cardiology - PN: Subj Interval history: LICENSED OCCUPATIONAL THERAPY ASSISTANT: DR. MANN Summary: Ms. Martinez is a 85 year old female with a prior history of coronary artery disease, status post PCI to right coronary artery, also with pacemaker implantation. She has dementia and resides in the [facility]. He was admitted with inferior STEMI. Cath demonstrated 100% mid LAD occlusion as well as 100% mid RCA occlusion. It seemed that the RCA was the culprit lesion and she underwent PCI of this vessel. The LAD could not be readily wired, due to a diagonal branch at the site of stenosis. She also had bradycardia intraoperatively despite having a pacemaker with a heart rate that was in the 20s-30s. We adjusted her pacemaker several times, and at this point we are going to try not to ventricular pacer as there is not good capture, unless we turn the output up high enough that she captures her diaphragm. She was identified as being kept under a "DO NOT RESUSCITATE" order, and these wishes were verified with the family. August 24, 2016: She has no complaints. She tells me her heart and lungs are fine. She is suspicious about us examining her, wondering why we are examining her when he feels fine. Impression and plan: 1. ACUTE INFEROLATERAL ST ELEVATION MYOCARDIAL INFARCTION - She is status post emergent revascularization of her right coronary artery. The LAD may be a chronic occlusion and was not successfully crossed. We are going to treat her acutely with dual antiplatelet therapy, beta blockade and statin therapy. 2. DEMENTIA - chronic. She is receiving Geodon to help with intermittent agitation. 3. BRADYCARDIA -pacemaker has been readjusted. 4. "DO NOT RESUSCITATE". 5. CORONARY ARTERY DISEASE 6. Hypertension-we will advance her antihypertensive regimen. Exam (Progress Note) - Constitutional Vitals: Period Temp Pulse Resp BP Sys/Cooper Pulse Ox Last 24 Hr 98.0 F-98.6 F 66-85 16-18 150-185/62-78 91-98 Exam: General appearance: Elderly, frail-appearing, no acute distress - Head Head exam: Present: normal inspection, normocephalic, atraumatic. Absent: hematoma, laceration - Eye Eye exam: Present: EOMI. Absent: conjunctival injection, nystagmus, periorbital swelling, scleral icterus, laceration to eyelids Pupils: Present: PERRL. Absent: constricted, dilated, fixed, irregular, unequal - ENT ENT exam: Present: normal exam, normal external ear exam - Neck Neck exam: Present: normal inspection. Absent: lymphadenopathy, meningismus, tenderness, thyromegaly - Respiratory Respiratory exam: Present: Scant crackles in the left base. Absent: accessory muscle use, chest wall tenderness - Cardiovascular Cardiovascular exam: Present: regular rate and rhythm with a 2/6 holosystolic murmur. Absent: carotid bruit, gallop, JVD, rubs - GI/Abdominal GI/Abdominal exam: Present: normal bowel sounds, soft. Absent: distended, firm , guarding, hernia, mass, tenderness, rebound. - Extremities Exam Extremities exam: Present: Decreased pulses in the bilateral lower extremities. Absent: calf tenderness, edema - Back Exam Back exam: Present: normal inspection. Absent: muscle spasm, vertebral tenderness - Neurological Exam Neurological exam: Present: alert, oriented to person, grossly intact without resting or intention tremor - Psychiatric Psychiatric exam: Present: normal affect, normal mood - Skin Skin exam: Present: normal color, warm, dry, intact. Absent: cyanosis, diaphoretic, rash, urticaria right groin is without hematoma or bruit. Result/EKG - Labs CBC & BMP: 08/24/16 05:04 08/24/16 05:04 Lab Results: I have reviewed the past 24 hour labs Labs: Laboratory Results - last 24 hr 08/24/16 08/24/16 05:04 05:04 WBC 11.8 RBC 3.81 Hgb 11.9 L Hct 35.7 MCV 93.7 MCH 31 MCHC 33.3 RDW 13.0 Plt Count 218 MPV 11.4 Neut % (Auto) 64.8 Lymph % (Auto) 21.7 [place] % (Auto) 9.0 Eos % (Auto) 3.1 Baso % (Auto) 0.7 Neut # (Auto) 7.6 H Lymph # (Auto) 2.6 [place] # (Auto) 1.1 H Eos # (Auto) 0.4 Baso # (Auto) 0.1 Immature Gran % 0.7 Nucleated RBC % 0.0 Immature Gran # 0.08 Nucleated RBCs # 0.00 Sodium 144 Potassium 4.1 Chloride 107 Carbon Dioxide 25 Anion Gap 16.1 H BUN 30 H Creatinine 1.00 GFR Calculation 48 BUN/Creatinine Ratio 30.00 H Glucose 120 H Calculated Osmolality 292.8 Calcium 9.0 Specialty Discharge - Follow Up or Referrals
[2016-08-24] MEDS: DESITIN 4OZ/NYSTATIN 15 GRAM MIXTURE PASTE TOP SCH ×2 (17:55→21:54)
[2016-08-24] MEDS: CARVEDILOL 6.25 MG TABLET PO SCH (21:52)
[2016-08-24] MEDS: ATORVASTATIN 40 MG TABLET PO SCH (21:52)
[2016-08-25 08:15] LABS: Basophils % 0.4 % (0.0-0.8); Eosinophils # 0.3 10*3/uL (0.0-0.87); Eosinophils % 2.4 % (0.00-10.9); Hematocrit 34.7 VOL% (35.7-47.0); Hemoglobin 11.7 GM/DL (12.0-16.0); Immature Granulocytes % 0.9 %; Lymphocytes % 18.2 % (21.3-54.2); Mean Corpuscular HGB Conc 33.7 GM/DL (32-36); Mean Corpuscular Hemoglobin 31 PG (27-34); Mean Corpuscular Volume 92.8 FL (87-102); Mean Platelet Volume 11.8 FL (9.6-12.0); Monocytes # 0.9 10*3/uL (0.11-0.8); Monocytes % 8.5 % (1.7-12.7); Neutrophils # 7.6 10*3/uL (1.4-7.4); Neutrophils % 69.6 % (38.7-73.9); Platelet Count 254 T/CUMM (130-400); Red Blood Count 3.74 MC/CUMM (3.8-5.5); Red Cell Distribution Width 12.8 % (9.3-17.3); White Blood Count 10.9 T/CUMM (4-12)
[2016-08-25] MEDS: ASPIRIN EC 81 MG TABLET PO SCH (09:47)
[2016-08-25] MEDS: LEVOTHYROXINE 75 MCG TABLET PO SCH (09:47)
[2016-08-25] MEDS: SERTRALINE 50 MG TABLET PO SCH (09:47)
[2016-08-25] MEDS: MIRTAZAPINE 15 MG TABLET PO SCH (09:47)
[2016-08-25] MEDS: CLOPIDOGREL 75 MG TABLET PO SCH (09:47)
[2016-08-25] MEDS: rOPINIRole 0.25 MG TABLET PO SCH (09:48)
[2016-08-25] MEDS: CARVEDILOL 6.25 MG TABLET PO SCH (09:48)
[2016-08-25] MEDS: PANTOPRAZOLE 40 MG TABLET PO SCH (09:48)
[2016-08-25] MEDS: QUEtiapine 100 MG TABLET PO SCH (09:48)
[2016-08-25] MEDS: LORazepam 0.5 MG TABLET PO SCH (09:48)
[2016-08-25] MEDS: DESITIN 4OZ/NYSTATIN 15 GRAM MIXTURE PASTE TOP SCH (09:49)
[2016-08-25] MEDS: FLUTICASONE 50 MCG NASAL SPRAY 16 GM BOTTLE BOTH NARES SCH (09:49)
[2016-08-25] MEDS: ENOXAPARIN 40 MG/0.4 ML SYRINGE SUBCUT SCH (09:49)
[2016-08-25] MEDS: OLOPATADINE HCL BOTH EYES SCH (09:50)
[2016-08-25] MEDS: LATANOPROST 0.005% OPH SOLN 2.5 ML BOTTLE BOTH EYES SCH (09:50)
--- NOTE | 2016-08-25 12:23 | Cardiology Progress Note ---
Assessment and Plan (1) ST elevation myocardial infarction (STEMI) of inferior wall Status: Acute Current Visit: Yes (2) Coronary artery disease Status: Chronic Current Visit: Yes (3) Pacemaker Status: Chronic Current Visit: Yes (4) Hypertension Status: Chronic Current Visit: Yes (5) Dementia Status: Chronic Current Visit: Yes (6) Bradycardia Status: Resolved Current Visit: Yes Cardiology - PN: Subj Interval history: EMPLOYMENT LAW SPECIALIST: DR. MANN Summary: Ms. Martinez is a 85 year old female with a prior history of coronary artery disease, status post PCI to right coronary artery, also with pacemaker implantation. She has dementia and resides in the [facility]. She was admitted with inferior STEMI. Cath demonstrated 100% mid LAD occlusion as well as 100% mid RCA occlusion. It seemed that the RCA was the culprit lesion and she underwent PCI of this vessel. The LAD could not be readily wired, due to a diagonal branch at the site of stenosis. She also had bradycardia intraoperatively despite having a pacemaker with a heart rate that was in the 20s-30s. We adjusted her pacemaker several times, and at this point we are going to try not to ventricular pacer as there is not good capture, unless we turn the output up high enough that she captures her diaphragm. She was identified as being kept under a "DO NOT RESUSCITATE" order, and these wishes were verified with the family. August 24, 2016: She has no complaints. She tells me her heart and lungs are fine. She is suspicious about us examining her, wondering why we are examining her when he feels fine. August 25, 2016: She continues to do well without complaints. Blood pressure is mildly uncontrolled. We are awaiting the nursing to accept her back. Impression and plan: 1. ACUTE INFEROLATERAL ST ELEVATION MYOCARDIAL INFARCTION - She is status post emergent revascularization of her right coronary artery. The LAD may be a chronic occlusion and was not successfully crossed. We are going to treat her acutely with dual antiplatelet therapy, beta blockade and statin therapy. 2. DEMENTIA - chronic. She is receiving Geodon to help with intermittent agitation. 3. BRADYCARDIA -pacemaker has been readjusted. 4. "DO NOT RESUSCITATE". 5. CORONARY ARTERY DISEASE 6. Hypertension-we will advance her antihypertensive regimen. Exam (Progress Note) - Constitutional Vitals: Period Temp Pulse Resp BP Sys/Cooper Pulse Ox Last 24 Hr 98 F-98.8 F 69-84 16-84 141-217/61-81 94-97 Exam: General appearance: Elderly, frail-appearing, no acute distress - Head Head exam: Present: normal inspection, normocephalic, atraumatic. Absent: hematoma, laceration - Eye Eye exam: Present: EOMI. Absent: conjunctival injection, nystagmus, periorbital swelling, scleral icterus, laceration to eyelids Pupils: Present: PERRL. Absent: constricted, dilated, fixed, irregular, unequal - ENT ENT exam: Present: normal exam, normal external ear exam - Neck Neck exam: Present: normal inspection. Absent: lymphadenopathy, meningismus, tenderness, thyromegaly - Respiratory Respiratory exam: Present: Scant crackles in the left base. Absent: accessory muscle use, chest wall tenderness - Cardiovascular Cardiovascular exam: Present: regular rate and rhythm with a 2/6 holosystolic murmur. Absent: carotid bruit, gallop, JVD, rubs - GI/Abdominal GI/Abdominal exam: Present: normal bowel sounds, soft. Absent: distended, firm , guarding, hernia, mass, tenderness, rebound. - Extremities Exam Extremities exam: Present: Decreased pulses in the bilateral lower extremities. Absent: calf tenderness, edema - Back Exam Back exam: Present: normal inspection. Absent: muscle spasm, vertebral tenderness - Neurological Exam Neurological exam: Present: alert, oriented to person, grossly intact without resting or intention tremor - Psychiatric Psychiatric exam: Present: normal affect, normal mood - Skin Skin exam: Present: normal color, warm, dry, intact. Absent: cyanosis, diaphoretic, rash, urticaria right groin is without hematoma or bruit. Result/EKG - Labs CBC & BMP: 08/25/16 07:25 08/24/16 05:04 Lab Results: I have reviewed the past 24 hour labs Labs: Laboratory Results - last 24 hr 08/25/16 07:25 WBC 10.9 RBC 3.74 L Hgb 11.7 L Hct 34.7 L MCV 92.8 MCH 31 MCHC 33.7 RDW 12.8 Plt Count 254 MPV 11.8 Neut % (Auto) 69.6 Lymph % (Auto) 18.2 L [place] % (Auto) 8.5 Eos % (Auto) 2.4 Baso % (Auto) 0.4 Neut # (Auto) 7.6 H Lymph # (Auto) 2.0 [place] # (Auto) 0.9 H Eos # (Auto) 0.3 Baso # (Auto) 0.0 Immature Gran % 0.9 Nucleated RBC % 0.0 Immature Gran # 0.10 Nucleated RBCs # 0.00 Specialty Discharge - Follow Up or Referrals
[2016-08-25] MEDS ORDERED: CARVEDILOL 12.5 MG TABLET PO SCH (12:24)
[2016-08-25 12:52] VITALS: BP 122/53
--- NOTE | 2016-08-25 15:26 | Discharge Summary ---
Hospital Course - Hospital Course Hospital Course: Summary: Ms. Martinez is a 85 year old female with a prior history of coronary artery disease, status post PCI to right coronary artery, also with pacemaker implantation. [facility] has [facility] She was admitted with inferior STEMI. Cath demonstrated 100% mid LAD occlusion as well as 100% mid RCA occlusion. It seemed that the RCA was the culprit lesion and she underwent PCI of this vessel with placement of a synergy 3.5 x 24 mm drug- eluting stent (this was an in stent late stent thrombosis). The LAD could not be readily wired, due to a diagonal branch at the site of stenosis. She also had bradycardia intraoperatively despite having a pacemaker with a heart rate that was in the 20s-30s. We adjusted her pacemaker several times, and at this point we are going to try not to ventricular pace her as there is not good capture, unless we turn the output up high enough that she captures her diaphragm. She was identified as being kept under a "DO NOT RESUSCITATE" order , and these wishes were verified with the family. The patient did not have any postoperative complications, remained hemodynamically stable without any signs or symptoms of postinfarct angina. She [facility] going [facility] be [facility] She is in stable condition. She can follow-up with Dr. Whitten, her usual lead blender. Diagnosis - Discharge Diagnosis (1) ST elevation myocardial infarction (STEMI) of inferior wall Status: Acute (2) Coronary artery disease Status: Chronic (3) Pacemaker Status: Chronic (4) Hypertension Status: Chronic (5) Dementia Status: Chronic (6) Bradycardia Status: Resolved Specialty Discharge - Follow Up or Referrals Discharge Plan - Discharge Data Disposition: Disch/Xfer to Snf Condition at Discharge: Stable Discharge Diet: regular diet Activity: no lifting (For 1 week) Hygiene: may shower - Discharge Medications New Aspirin EC Tab 81 mg PO DAILY #30 tablet Atorvastatin [Lipitor] 80 mg PO BEDTIME #30 tablet Clopidogrel [Plavix] 75 mg PO DAILY #30 tablet Fluticasone 50 Mcg Nasal [place] [Flonase Nasal [place]] 1 spray BOTH NARES DAILY spray Nitroglycerin Sl Tab [Nitrostat] 0.4 mg SL Q5M PRN #1 bottle PRN Reason: Chest Pain QUEtiapine [SEROquel] 100 mg PO BID tablet Carvedilol [Coreg] 12.5 mg PO BID #60 tablet Continue Polyethylene Glycol 3350 8.5 gm PO QOTHER DAY Sertraline [Zoloft] 150 mg PO DAILY Ropinirole HCl [Requip] 0.5 mg PO DAILY Pantoprazole Tab [Protonix Tab] 40 mg PO DAILY Olopatadine HCl [Pataday 0.2% Oph Soln] 1 drop BOTH EYES DAILY Mirtazapine [Remeron] 15 mg PO DAILY Levothyroxine Tab [Synthroid Tab] 75 mcg PO DAILY Latanoprost 0.005% Oph Soln [Xalatan 0.005% Oph Soln] 1 drop BOTH EYES DAILY Discontinued Diltiazem Cd Cap [Cardizem CD] 300 mg PO DAILY cloNIDine TAB [Catapres Tab] 0.2 mg PO DAILY Triamterene/Hctz 37.5-25 Cap [Dyazide] 1 mg PO QOTHER DAY Lisinopril 10 mg PO DAILY Fluticasone Propionate [Fluticasone 50 mcg Nasal [place]] 50 mcg BOTH NARES DAILY Digoxin [Lanoxin] 125 mcg PO DAILY - Follow Up or Referral Follow Up: Malick Whitten MD [Physician] - 2 Weeks - Forms/Instructions Instructions: Myocardial Infarction (GEN), Left Heart Catheterization (DC), Heart Healthy Diet (GEN), Coronary Intravascular Stent Placement (DC) Exam - Constitutional Vitals: Period Temp Pulse Resp BP Sys/Cooper Pulse Ox Last 24 Hr 98 F-98.8 F 69-85 16-84 122-217/53-81 93-97 Exam: General appearance: Elderly, frail-appearing, no acute distress - Head Head exam: Present: normal inspection, normocephalic, atraumatic. Absent: hematoma, laceration - Eye Eye exam: Present: EOMI. Absent: conjunctival injection, nystagmus, periorbital swelling, scleral icterus, laceration to eyelids Pupils: Present: PERRL. Absent: constricted, dilated, fixed, irregular, unequal - ENT ENT exam: Present: normal exam, normal external ear exam - Neck Neck exam: Present: normal inspection. Absent: lymphadenopathy, meningismus, tenderness, thyromegaly - Respiratory Respiratory exam: Present: Scant crackles in the left base. Absent: accessory muscle use, chest wall tenderness - Cardiovascular Cardiovascular exam: Present: regular rate and rhythm with a 2/6 holosystolic murmur. Absent: carotid bruit, gallop, JVD, rubs - GI/Abdominal GI/Abdominal exam: Present: normal bowel sounds, soft. Absent: distended, firm , guarding, hernia, mass, tenderness, rebound. - Extremities Exam Extremities exam: Present: Decreased pulses in the bilateral lower extremities. Absent: calf tenderness, edema - Back Exam Back exam: Present: normal inspection. Absent: muscle spasm, vertebral tenderness - Neurological Exam Neurological exam: Present: alert, oriented to person, grossly intact without resting or intention tremor - Psychiatric Psychiatric exam: Present: normal affect, normal mood - Skin Skin exam: Present: normal color, warm, dry, intact. Absent: cyanosis, diaphoretic, rash, urticaria right groin is without hematoma or bruit. Discharge Results Procedures and tests throughout hospitalization: Pending Orders 08/26/16 04:00 BMP w/ Mg [Basic Metabolic Panel w/Mg] IN AM Comp Blood Count Auto Diff IN AM Comp Blood Count Auto Diff IN AM Labs on day of discharge: Labs from last 24 hours 08/25/16 07:25 WBC 10.9 RBC 3.74 L Hgb 11.7 L Hct 34.7 L MCV 92.8 MCH 31 MCHC 33.7 RDW 12.8 Plt Count 254 MPV 11.8 Neut % (Auto) 69.6 Lymph % (Auto) 18.2 L [place] % (Auto) 8.5 Eos % (Auto) 2.4 Baso % (Auto) 0.4 Neut # (Auto) 7.6 H Lymph # (Auto) 2.0 [place] # (Auto) 0.9 H Eos # (Auto) 0.3 Baso # (Auto) 0.0 Immature Gran % 0.9 Nucleated RBC % 0.0 Immature Gran # 0.10 Nucleated RBCs # 0.00 DS: Provider Date of admission: 08/21/16 19:29 Primary care physician: . No PCP Attending physician on admission: Shania Pineda, Consults: 08/21/16 16:11 Consult to Cardiac Rehabilitation [CONS] Routine Reason for Cardiac Rehabilitation: Other 08/21/16 18:38 Consult to Dietitian [CONS] Routine Reason for Dietitian: Supplements and/or Snacks 08/24/16 17:21 Consult to Case Mgmt/Social Srvs [CONS] Routine Reason for Case Mgmt/Social Srvs: Discharge Planning Discharging clinician: Shania Pineda, Expected date of discharge: 08/25/16
== END 2016-08-25 16:34 | DRG 247 ==
LOC: N.CL 18:35 → N.CC 18:38 → N.TELEN 08-23 14:36
PROVIDERS: ADMIT Internal Medicine Cardiovascular Disease; ATTEND Internal Medicine Cardiovascular Disease
PROC: CLCCHCL (ICD-10-PCS; 2016-08-21 15:15)